=== PATIENT | female | born 1980 | race African-American/Black ===

== ENCOUNTER 2018-07-08 19:38 | Emergency (ER) | payer OTHER ==
--- NOTE | 2018-07-08 20:40 | NUR ---
PT REFUSED TO BE TRIAGED AT THIS TIME. RISK AND BENEFITS EXPLAINED. PT STATES SHE WILL FOLLOW UP WITH PCP.
== END 2018-07-08 20:44 | disposition left against medical advice (07) ==
LOC: ER 19:43
DX: Z53.21 Procedure and treatment not carried out due to patient leaving prior to being seen by health care provider (principal)
CPT/HCPCS: A4606; Z7610